=== PATIENT | male | born 1980 | race Hispanic/Latino ===

== ENCOUNTER 2024-10-06 11:39 | Emergency (ER) | payer OTHER ==
[2024-10-06 12:46] LABS: Absolute Eosinophils 0.4 K/uL (0-0.5); Absolute Lymphocytes (CBC) 1.5 K/uL (0.7-4.9); Absolute Monocytes 0.3 K/uL (0.1-1.3); Absolute Neutrophil 3.5 K/uL (1.8-8.0); Basophils % 0.6 % (0-1.3); Eosinophils % 7.4 % (0-4.4); Hematocrit 42.7 % (39.6-49.0); Hemoglobin 14.5 g/dL (13.6-17.9); Lymphocytes % 25.7 % (15.3-44.8); MCH 32.1 pg (27.0-35.0); MCV 94.5 fL (80-100); MPV 7.7 fL (7.6-11.3); Neutrophils % 60.3 % (41.7-73.7); Nucleated Red Blood Cells % 0.2 % (0-0); Platelets 256 thou/uL (152-406); RBC Red Blood Cell Count 4.51 M/uL (4.33-5.43); Red Cell Distribution Width 12.9 % (12.1-15.2)
--- NOTE | 2024-10-06 12:54 | RAD REPORT ---
EXAMINATION: ONE VIEW CHEST XR CLINICAL INDICATION: PAIN TECHNIQUE: Frontal chest projection is submitted. Examination is limited by patient positioning and t echnique. COMPARISON: No prior exam. FINDINGS: The lungs are well inflated and clear. The heart is normal in size. No displaced fractures identified . IMPRESSION: No acute intrathoracic abnormalities.
[2024-10-06 13:01] LABS: D-Dimer 0.218 FEUug/mL (0-0.500); Protime INR 1.07
[2024-10-06 13:11] LABS: ALT/SGPT 47 U/L (16-61); AST/SGOT 24 U/L (15-37); Albumin/Globulin Ratio 1.2 (1.1-1.8); Alkaline Phosphatase 59 U/L (45-117); Anion Gap 7.7 mEq/L (5.0-15.0); BUN Blood Urea Nitrogen 17 mg/dL (7-18); Bicarbonate 27 mEq/L (21-32); Bilirubin Total 0.5 mg/dL (0.2-1.0); Globulin 3.3 g/dL (2.3-3.5); Glomerular Filtration Rate 103 ml/min (=/>90); Glucose Level 120 mg/dL (74-106); NT PRO-BNP 35 pg/mL (<125); Potassium 3.7 mEq/L (3.5-5.1); Protein, Total 7.3 g/dL (6.4-8.2); Sodium Level 137 mEq/L (136-145); Troponin High Sensitivity 6.7 pg/mL (<58.9)
[2024-10-06 13:15] LABS: Bilirubin Direct < 0.2 mg/dL (0-0.2); Bilirubin Indirect, Calculated 0.3 mg/dL (0.2-0.8)
--- NOTE | 2024-10-06 13:51 | EDPHYS ---
Physician Documentation [facility] Name: Solis Gillis Age: 44 yrs Sex: Male : 1980 Arrival Date: 10/06/2024 Time: 11:39 Bed 6 Private MD: ED Physician Janna Sandhu HPI: 10/06 13:51 This 44 yrs old Male presents to ER via Ambulatory with complaints of gb1 Shortness Of Breath, Chest Pain - Arm tingling. 13:51 44-year-old male with chest pain that started both arms tingling and he became short of gb1 breath just prior to arrival. Patient describes the pain as lasting seconds. He states his shortness of breath quickly resolved once he arrived to the emergency department. He is a heavy alcohol drinker. He is also been told that his blood sugars have been high or very low.. Historical: - Allergies: 12:11 No Known Allergies; ss - PMHx: 12:11 Anxiety; borderline diabetic; ss - PSHx: 12:11 nose; ss - Immunization history:: Adult Immunizations up to date. - Infectious Disease History:: Denies. - Social history:: Smoking status: Patient denies any tobacco usage or history of. Exam: 13:51 Constitutional: This is a well developed, well nourished patient who is awake, alert, gb1 and in no acute distress. Head/Face: Normocephalic, atraumatic. Eyes: Pupils equal round and reactive to light, extra-ocular motions intact. Lids and lashes normal. Conjunctiva and sclera are non-icteric and not injected. Cornea within normal limits. Periorbital areas with no swelling, redness, or edema. ENT: Nares patent. No nasal discharge, no septal abnormalities noted. Tympanic membranes are normal and external auditory canals are clear. Oropharynx with no redness, swelling, or masses, exudates, or evidence of obstruction, uvula midline. Mucous membranes moist. Neck: Trachea midline, no thyromegaly or masses palpated, and no cervical lymphadenopathy. Supple, full range of motion without nuchal rigidity, or vertebral point tenderness. No Meningismus. Chest/axilla: Normal chest wall appearance and motion. Nontender with no deformity. No lesions are appreciated. Cardiovascular: Regular rate and rhythm with a normal S1 and S2. No gallops, murmurs, or rubs. Normal PMI, no JVD. No pulse deficits. Respiratory: Lungs have equal breath sounds bilaterally, clear to auscultation and percussion. No rales, rhonchi or wheezes noted. No increased work of breathing, no retractions or nasal flaring. Abdomen/GI: Soft, non-tender, with normal bowel sounds. No distension or tympany. No guarding or rebound. No evidence of tenderness throughout. Back: No spinal tenderness. No costovertebral tenderness. Full range of motion. Skin: Warm, dry with normal turgor. Normal color with no rashes, no lesions, and no evidence of cellulitis. MS/ Extremity: Pulses equal, no cyanosis. Neurovascular intact. Full, normal range of motion. Neuro: Awake and alert, GCS 15, oriented to person, place, time, and situation. Cranial nerves II-XII grossly intact. Motor strength 5/5 in all extremities. Sensory grossly intact. Cerebellar exam normal. Normal gait. Vital Signs: 11:50 Temp 98.2(TE); ss 12:07 BP 150 / 101; Pulse 78; Resp 22; Pulse Ox 100% on R/A; Weight 88 kg; Height 72 in. ; ss Pain 5/10; 14:06 BP 131 / 90; Pulse 74; Resp 16; Pulse Ox 95% ; bp 12:07 Body Mass Index 26.31 (88.00 kg, 182.88 cm) ss 12:07 Pain Scale: Adult ss MDM: 12:05 Medical Screening Exam initiated gb1 13:22 ED course: . gb1 13:51 Data reviewed: vital signs, nurses notes, EKG. ED course: Patient is EKG done at 1207 gb1 shows normal sinus rhythm at [address] wave changes. Patient does have inverted T wave in leads #3. He also is a Q wave in lead III.. ED course: 44-year-old male with nonspecific chest pain doubt cardiac etiology. Low risk PE D-dimer negative chest x-ray within normal limits no concerning EKG changes for ischemia. No focal findings on chest x-ray to suggest a pneumonia or pneumonitis. I did review the patient's hemoglobin A1c on his phone which was 5.8, I recommended that he follow-up outpatient and start following a diabetic diet. Patient's at bedside discharge home with routine follow-up.. 10/06 11:47 Order name: Basic Metabolic Panel; Complete Time: 13:17 10/06 11:47 Order name: CBC with Diff; Complete Time: 12:57 10/06 11:47 Order name: D-Dimer; Complete Time: 13:12 10/06 11:47 Order name: LFT's; Complete Time: 13:17 10/06 11:47 Order name: NT PRO-BNP; Complete Time: 13:17 10/06 11:47 Order name: PT-INR; Complete Time: 13:12 10/06 11:47 Order name: Troponin HS; Complete Time: 13:17 10/06 11:47 Order name: XRAY Chest (1 view); Complete Time: 12:57 10/06 11:47 Order name: Cardiac monitoring; Complete Time: 12:40 10/06 11:47 Order name: EKG - Nurse/Tech; Complete Time: 12:12 10/06 11:47 Order name: IV Saline Lock; Complete Time: 12:40 10/06 11:47 Order name: Labs collected and sent; Complete Time: 12:40 10/06 11:47 Order name: O2 Per Protocol; Complete Time: 12:27 10/06 11:47 Order name: O2 Sat Monitoring; Complete Time: 12:27 gb Administered Medications: No medications were administered Disposition Summary: 10/06/24 13:50 Discharge Ordered Notes: Location: Home gb1 Problem: an ongoing problem gb1 Symptoms: have improved gb1 Condition: Stable gb1 Diagnosis - Chest pain on breathing gb1 - Panic disorder [episodic paroxysmal anxiety] without agoraphobia gb1 Followup: gb1 - With: Private Physician - When: - Reason: Recheck today's complaints Discharge Instructions: - Discharge Summary Sheet gb1 - Panic Attack gb1 - Nonspecific Chest Pain, Adult, [id number] gb1 Forms: - Medication Reconciliation Form gb1 - Antibiotic Education gb1 - Prescription Opioid Use gb1 - Patient Portal Instructions gb1 - Leadership Thank You Letter gb1 Signatures: Dispatcher [employer] Dulce Cortes RN RN ss Jl, Ubaldo, RN RN bp Edson, Janna, MD MD gb1
--- NOTE | 2024-10-06 13:51 | ER ---
Nurse's Notes [facility] Name: Solis Gillis Age: 44 yrs Sex: Male : 1980 Arrival Date: 10/06/2024 Time: 11:39 Bed 6 Private MD: Diagnosis: Chest pain on breathing;Panic disorder [episodic paroxysmal anxiety] without agoraphobia Presentation: 10/06 12:07 Chief complaint: Patient states: anxiety, CP and sob that began this morning. Pt ss reports this occurred 1 week ago and was seen at [facility] and a a negative cardiac work up. Coronavirus screen: Client denies travel out of the [place] in the last 14 days. Ebola Screen: Patient denies exposure to infectious person. Patient denies travel to an Ebola-affected area in the 21 days before illness onset. Initial Sepsis Screen: Does the patient meet any 2 criteria? No. Patient's initial sepsis screen is negative. Does the patient have a suspected source of infection? No. Patient's initial sepsis screen is negative. Risk Assessment: Do you want to hurt yourself or someone else? Patient reports no desire to harm self or others. Onset of symptoms was October 06, 2024. 12:07 Method Of Arrival: Ambulatory ss 12:07 Acuity: AWA 3 ss Triage Assessment: 12:10 General: Appears in no apparent distress. Behavior is cooperative, appropriate for age, bp anxious. Pain: Complains of pain in chest. EENT: No deficits noted. Neuro: No deficits noted. Cardiovascular: No deficits noted. Respiratory: Reports shortness of breath Onset: The symptoms/episode began/occurred at an unknown time. the patient reports symptoms have resolved. GI: No signs and/or symptoms were reported involving the gastrointestinal system. : No signs and/or symptoms were reported regarding the genitourinary system. Derm: No deficits noted. Musculoskeletal: No deficits noted. Historical: - Allergies: 12:11 No Known Allergies; ss - PMHx: 12:11 Anxiety; borderline diabetic; ss - PSHx: 12:11 nose; ss - Immunization history:: Adult Immunizations up to date. - Infectious Disease History:: Denies. - Social history:: Smoking status: Patient denies any tobacco usage or history of. Screenin:10 [facility] ED Fall Risk Assessment (Adult) History of falling in the last 3 months, bp including since admission No falls in past 3 months (0 pts) Confusion or Disorientation No (0 pts) Intoxicated or Sedated No (0 pts) Impaired Gait No (0 pts) Mobility Assist Device Used No (0 pt) Altered Elimination No (0 pt) Score/Fall Risk Level 0 - 2 = Low Risk Oriented to surroundings. Abuse screen: Denies threats or abuse. Denies injuries from another. Nutritional screening: No deficits noted. Tuberculosis screening: No symptoms or risk factors identified. Assessment: 12:10 General: Appears in no apparent distress. comfortable, Behavior is cooperative, bp appropriate for age, anxious. 14:07 Cardiovascular: Rhythm is sinus rhythm. Respiratory: Airway is patent Respiratory bp effort is even, unlabored, Breath sounds are clear bilaterally. Vital Signs: 11:50 Temp 98.2(TE); ss 12:07 BP 150 / 101; Pulse 78; Resp 22; Pulse Ox 100% on R/A; Weight 88 kg; Height 72 in. ; ss Pain 5/10; 14:06 BP 131 / 90; Pulse 74; Resp 16; Pulse Ox 95% ; bp 12:07 Body Mass Index 26.31 (88.00 kg, 182.88 cm) ss 12:07 Pain Scale: Adult ss ED Course: 11:41 Patient arrived in ED. ra3 11:47 Janna Sandhu MD is Attending Physician. gb1 12:10 Patient has correct armband on for positive identification. bp 12:11 Triage completed. ss 12:11 Arm band placed on right wrist. ss 12:27 Ubaldo Parikh, RN is Primary Nurse. bp 12:40 Basic Metabolic Panel Sent. ty 12:40 CBC with Diff Sent. ty 12:40 D-Dimer Sent. ty 12:40 LFT's Sent. ty 12:40 NT PRO-BNP Sent. ty 12:40 PT-INR Sent. ty 12:40 Troponin HS Sent. ty 12:40 Inserted saline lock: 20 gauge in right forearm, using aseptic technique. Blood ty collected. Flushed with 10 mL NS. 12:45 XRAY Chest (1 view) In Process Unspecified. EDMS 14:06 Provided Education on: N/A. bp 14:06 No provider procedures requiring assistance completed. IV discontinued, intact, bp bleeding controlled, No redness/swelling at site. Pressure dressing applied. Administered Medications: No medications were administered Medication: 14:06 VIS not applicable for this client. bp Outcome: 13:50 Discharge ordered by . nichole 14:06 Discharged to home ambulatory, with family, bp 14:06 Condition: stable 14:06 Discharge instructions given to patient, Instructed on discharge instructions, follow up and referral plans. Demonstrated understanding of instructions, follow-up care, 14:08 Patient left the ED. bp Signatures: Dispatcher [employer] EDDulce Tavares RN RN Ubaldo Chun RN RN bp Edson, MD ANDIE Sadlivar gb1 Rosa Elena Lewis ra3 Edinson Montaño ty
[2024-10-06 14:34] VITALS: TEMP 98.2
[2024-10-06 14:36] VITALS: BP 131/90; O2SAT 95
--- NOTE | 2024-10-10 10:56 | EKG ---
Test Date: 2024-10-06 Test Time: 12:07:28 Clinical Support Specialist: MAURA MEASUREMENT RESULTS: Intervals: Rate: 71 IL: 164 QRSD: 92 QT: 372 QTc: 404 Draper: P: 48 IL: 164 QRS: 85 T: 18 INTERPRETIVE STATEMENTS: Normal sinus rhythm Nonspecific T wave abnormality Abnormal ECG No previous ECG available for comparison Electronically Signed On 10-10-24 10:51:32 [employer] by Sander Louise
== END 2024-10-06 14:08 | disposition home or self-care (01) ==
LOC: ER 11:39
DX: F41.0 Panic disorder [episodic paroxysmal anxiety] (principal)
CPT/HCPCS: 36415; 71045; 80048; 80076; 83880; 84484; 85025; 85379; 85610; 93005; 99283